=== PATIENT | male | born 1970 | race Caucasian/White ===

== ENCOUNTER 2016-02-11 09:00 | Outpatient (RCR) | payer BC | END 2016-03-01 | disposition home or self-care (01) | LOC: PT | DX: Z48.810 Encounter for surgical aftercare following surgery on the sense organs (principal); G95.0 Syringomyelia and syringobulbia | CPT/HCPCS: G0283-GP ==

== ENCOUNTER 2016-12-08 09:00 | Outpatient (RCR) | payer OTHER | END 2016-12-08 09:30 | disposition home or self-care (01) | LOC: PT 09:00 | DX: M71.9 Bursopathy, unspecified (principal) ==

== ENCOUNTER → 2017-09-18 | Outpatient (CLI) | payer BC | LOC: RAD 07:49 | DX: S22.42XA Multiple fractures of ribs, left side, initial encounter for closed fracture (principal); I51.7 Cardiomegaly ==

== ENCOUNTER → 2018-07-17 | Outpatient (CLI) | payer BC ==
[2018-07-17 18:03] LABS: BASO # 0.1 (0.02-0.10); EOS # 0.5 (0.04-0.40); HEMATOCRIT 40.1 % (42.0-52.0); LYMPH# 2.9 (1.50-4.00); MEAN CELL VOLUME 92 fl (78-100); MEAN CORPUSCULAR HEMOGLOBIN 30 pg (27-31); MEAN CORPUSCULAR HGB CONC 32 g/dL (33-37); MEAN PLATELET VOLUME 9.1 fl (7.4-10.4); MONO # 0.8 (0.20-0.80); NEU # 4.9 (1.40-6.50); PLATELET COUNT 363 K/mm3 (130-400); RED BLOOD COUNT 4.37 M/mm3 (4.20-5.60); RED CELL DISTRIBUTION WIDTH 13.9 % (11.5-14.5); WHITE BLOOD COUNT 9.1 K/mm3 (4.8-10.8)
[2018-07-17 18:29] LABS: ALBUMIN 3.9 g/dL (3.5-5.0); CALCIUM 9.1 mg/dL (8.3-10.5); POTASSIUM 3.9 mmol/L (3.5-5.1); TOTAL BILIRUBIN 0.3 mg/dL (0.2-1.2); TOTAL PROTEIN 6.8 g/dL (6.4-8.3)
[2018-07-17 19:16] LABS: EOS % 5.3 % (0.0-4.0)
[2018-07-17 19:17] LABS: ERYTHROCYTE SEDIMENTATION RATE 15 mm/hr (0-15)
== END ==
LOC: LAB 17:30
PROVIDERS: Internal Medicine
DX: Z00.00 Encounter for general adult medical examination without abnormal findings (principal); Z12.5 Encounter for screening for malignant neoplasm of prostate

== ENCOUNTER → 2019-04-08 | Outpatient (CLI) | payer BC | LOC: LAB 10:44 | DX: L82.1 Other seborrheic keratosis (principal) ==

== ENCOUNTER → 2019-11-25 | Outpatient (CLI) | payer BC | LOC: LAB 13:43 | DX: U07.1 COVID-19 (principal) ==

== ENCOUNTER → 2019-12-23 | Outpatient (CLI) | payer BC ==
[2019-12-23 16:50] LABS: BASO # 0.1 (0.02-0.10); EOS # 0.2 (0.04-0.40); EOS % 1.9 % (0.0-4.0); HEMATOCRIT 41.5 % (42.0-52.0); HEMOGLOBIN 13.9 g/dL (13.5-18.0); LYMPH# 3.2 (1.50-4.00); MEAN CELL VOLUME 89 fl (78-100); MEAN CORPUSCULAR HEMOGLOBIN 30 pg (27-31); MEAN CORPUSCULAR HGB CONC 34 g/dL (33-37); MEAN PLATELET VOLUME 8.9 fl (7.4-10.4); MONO # 0.9 (0.20-0.80); PLATELET COUNT 358 K/mm3 (130-400); RED BLOOD COUNT 4.64 M/mm3 (4.20-5.60); RED CELL DISTRIBUTION WIDTH 13.7 % (11.5-14.5); WHITE BLOOD COUNT 11.4 K/mm3 (4.8-10.8)
[2019-12-23 16:51] LABS: ALBUMIN 4.2 g/dL (3.5-5.0); POTASSIUM 4.1 mmol/L (3.5-5.1)
[2019-12-23 16:52] LABS: CALCIUM 9.3 mg/dL (8.3-10.5)
[2019-12-23 16:54] LABS: TOTAL PROTEIN 7.5 g/dL (6.4-8.3)
[2019-12-23 16:56] LABS: TOTAL BILIRUBIN 0.4 mg/dL (0.2-1.2)
[2019-12-23 17:40] LABS: ERYTHROCYTE SEDIMENTATION RATE 15 mm/hr (0-20)
== END ==
LOC: LAB 16:31
PROVIDERS: Internal Medicine
DX: Z00.00 Encounter for general adult medical examination without abnormal findings (principal); Z12.5 Encounter for screening for malignant neoplasm of prostate

== ENCOUNTER → 2020-01-01 | Outpatient (CLI) | payer BC | LOC: LAB 10:45 | DX: U07.1 COVID-19 (principal) ==

== ENCOUNTER → 2020-05-25 | Day surgery (SDC) | payer BC | LOC: MSO 08:09 | DX: Z12.11 Encounter for screening for malignant neoplasm of colon (principal); K57.30 Diverticulosis of large intestine without perforation or abscess without bleeding; Z90.49 Acquired absence of other specified parts of digestive tract; K21.9 Gastro-esophageal reflux disease without esophagitis | CPT/HCPCS: 00812; J2704; J3010; J7120 ==

== ENCOUNTER → 2020-12-22 | Outpatient (CLI) | payer BC ==
[2020-12-22 16:46] LABS: BASO # 0.08 K/mm3 (0.02-0.10); EOS # 0.27 K/mm3 (0.04-0.40); EOS % 2.7 % (0.0-4.0); HEMATOCRIT 42.8 % (42.0-52.0); HEMOGLOBIN 14.3 g/dL (13.5-18.0); LYMPH# 2.98 K/mm3 (1.50-4.00); MEAN CELL VOLUME 92 fl (78-100); MEAN CORPUSCULAR HEMOGLOBIN 31 pg (27-31); MEAN CORPUSCULAR HGB CONC 33 g/dL (33-37); MEAN PLATELET VOLUME 8.6 fl (7.4-10.4); NEU # 6.07 K/mm3 (1.40-6.50); PLATELET COUNT 416 K/mm3 (130-400); RED BLOOD COUNT 4.64 M/mm3 (4.20-5.60); RED CELL DISTRIBUTION WIDTH 13.3 % (11.5-14.5); WHITE BLOOD COUNT 10.1 K/mm3 (4.8-10.8)
[2020-12-22 16:54] LABS: POTASSIUM 4.1 mmol/L (3.5-5.1)
[2020-12-22 16:55] LABS: CALCIUM 9.5 mg/dL (8.3-10.5)
[2020-12-22 16:58] LABS: TOTAL BILIRUBIN 0.4 mg/dL (0.2-1.2)
== END ==
LOC: LAB 16:18
PROVIDERS: Internal Medicine
DX: Z00.00 Encounter for general adult medical examination without abnormal findings (principal); Z12.5 Encounter for screening for malignant neoplasm of prostate

== ENCOUNTER → 2021-12-09 | Outpatient (CLI) | payer BC ==
[2021-12-09 16:45] LABS: BASO # 0.03 K/mm3 (0.02-0.10); EOS # 0.35 K/mm3 (0.04-0.40); EOS % 4.2 % (0.0-4.0); HEMOGLOBIN 14.9 g/dL (13.5-18.0); LYMPH# 1.54 K/mm3 (1.50-4.00); MEAN CELL VOLUME 93 fl (78-100); MEAN CORPUSCULAR HEMOGLOBIN 31 pg (27-31); MEAN CORPUSCULAR HGB CONC 34 g/dL (33-37); MEAN PLATELET VOLUME 8.7 fl (7.4-10.4); MONO # 0.89 K/mm3 (0.20-0.80); NEU # 5.58 K/mm3 (1.40-6.50); PLATELET COUNT 313 K/mm3 (130-400); RED BLOOD COUNT 4.74 M/mm3 (4.20-5.60); RED CELL DISTRIBUTION WIDTH 13.1 % (11.5-14.5); WHITE BLOOD COUNT 8.4 K/mm3 (4.8-10.8)
[2021-12-09 16:49] LABS: ALBUMIN 4.2 g/dL (3.5-5.0)
[2021-12-09 16:50] LABS: CALCIUM 9.5 mg/dL (8.3-10.5)
[2021-12-09 16:51] LABS: TOTAL PROTEIN 7.2 g/dL (6.4-8.3)
[2021-12-09 16:53] LABS: TOTAL BILIRUBIN 0.5 mg/dL (0.2-1.2)
== END ==
LOC: LAB 16:28
PROVIDERS: Internal Medicine
DX: Z00.00 Encounter for general adult medical examination without abnormal findings (principal); Z12.5 Encounter for screening for malignant neoplasm of prostate; Z12.11 Encounter for screening for malignant neoplasm of colon; G95.0 Syringomyelia and syringobulbia; S14.109D Unspecified injury at unspecified level of cervical spinal cord, subsequent encounter; Z23 Encounter for immunization; L91.8 Other hypertrophic disorders of the skin

== ENCOUNTER → 2022-11-24 | Outpatient (CLI) | payer OTHER ==
[2022-11-24 14:00] LABS: ALBUMIN 4.1 g/dL (3.5-5.0); POTASSIUM 3.9 mmol/L (3.5-5.1)
[2022-11-24 14:01] LABS: CALCIUM 9.2 mg/dL (8.3-10.5)
[2022-11-24 14:02] LABS: TOTAL PROTEIN 7.2 g/dL (6.4-8.3)
[2022-11-24 14:04] LABS: TOTAL BILIRUBIN 0.5 mg/dL (0.2-1.2)
[2022-11-24 14:07] LABS: ERYTHROCYTE SEDIMENTATION RATE 19 mm/hr (0-20)
[2022-11-24 14:12] LABS: EOS # 1.59 K/mm3 (0.04-0.40); EOS % 12.1 % (0.0-4.0); HEMATOCRIT 41.3 % (42.0-52.0); HEMOGLOBIN 13.7 g/dL (13.5-18.0); LYMPH# 2.02 K/mm3 (1.50-4.00); MEAN CELL VOLUME 95 fl (78-100); MEAN CORPUSCULAR HEMOGLOBIN 32 pg (27-31); MEAN CORPUSCULAR HGB CONC 33 g/dL (33-37); MEAN PLATELET VOLUME 9.1 fl (7.4-10.4); MONO # 0.76 K/mm3 (0.20-0.80); NEU # 8.69 K/mm3 (1.40-6.50); PLATELET COUNT 366 K/mm3 (130-400); RED BLOOD COUNT 4.34 M/mm3 (4.20-5.60); RED CELL DISTRIBUTION WIDTH 13.1 % (11.5-14.5); WHITE BLOOD COUNT 13.2 K/mm3 (4.8-10.8)
== END ==
LOC: LAB 12:48
PROVIDERS: Nurse Practitioner Family
DX: J06.9 Acute upper respiratory infection, unspecified (principal); M25.50 Pain in unspecified joint; R09.81 Nasal congestion; Z20.822 Contact with and (suspected) exposure to COVID-19

== ENCOUNTER → 2022-12-13 | Outpatient (CLI) | payer OTHER ==
[2022-12-13 15:46] LABS: EOS # 1.62 K/mm3 (0.04-0.40); EOS % 17.2 % (0.0-4.0); HEMATOCRIT 37.5 % (42.0-52.0); HEMOGLOBIN 12.4 g/dL (13.5-18.0); LYMPH# 2.24 K/mm3 (1.50-4.00); MEAN CELL VOLUME 95 fl (78-100); MEAN CORPUSCULAR HEMOGLOBIN 32 pg (27-31); MEAN CORPUSCULAR HGB CONC 33 g/dL (33-37); MEAN PLATELET VOLUME 8.4 fl (7.4-10.4); MONO # 0.69 K/mm3 (0.20-0.80); NEU # 4.77 K/mm3 (1.40-6.50); PLATELET COUNT 383 K/mm3 (130-400); RED BLOOD COUNT 3.93 M/mm3 (4.20-5.60); WHITE BLOOD COUNT 9.4 K/mm3 (4.8-10.8)
== END ==
LOC: LAB 15:23
PROVIDERS: Internal Medicine
DX: Z00.00 Encounter for general adult medical examination without abnormal findings (principal); Z12.11 Encounter for screening for malignant neoplasm of colon; Z12.5 Encounter for screening for malignant neoplasm of prostate; Z23 Encounter for immunization; S14.109D Unspecified injury at unspecified level of cervical spinal cord, subsequent encounter; G95.0 Syringomyelia and syringobulbia; L91.8 Other hypertrophic disorders of the skin; E55.9 Vitamin D deficiency, unspecified; K90.9 Intestinal malabsorption, unspecified; J30.2 Other seasonal allergic rhinitis

== ENCOUNTER → 2023-02-10 | Outpatient (CLI) | payer OTHER | LOC: LAB 08:31 | DX: R76.0 Raised antibody titer (principal) ==

== ENCOUNTER → 2023-05-02 | Outpatient (CLI) | payer OTHER | LOC: LAB 15:53 | DX: L08.9 Local infection of the skin and subcutaneous tissue, unspecified (principal) ==

== ENCOUNTER → 2023-06-19 | Outpatient (REF) | payer OTHER | LOC: LAB 08:36 | DX: L08.9 Local infection of the skin and subcutaneous tissue, unspecified (principal) ==

== ENCOUNTER → 2023-08-01 | Outpatient (CLI) | payer OTHER | LOC: RAD 07:38 | DX: M17.11 Unilateral primary osteoarthritis, right knee (principal) ==

== ENCOUNTER → 2023-08-10 | Outpatient (CLI) | payer OTHER | LOC: RAD 07:17 | DX: M17.11 Unilateral primary osteoarthritis, right knee (principal) ==

== ENCOUNTER → 2023-12-15 | Outpatient (CLI) | payer OTHER ==
[2023-12-15 10:10] LABS: BASO # 0.03 K/mm3 (0.02-0.10); EOS # 0.24 K/mm3 (0.04-0.40); EOS % 2.3 % (0.0-4.0); HEMATOCRIT 41.3 % (42.0-52.0); HEMOGLOBIN 13.8 g/dL (13.5-18.0); LYMPH# 2.15 K/mm3 (1.50-4.00); MEAN CELL VOLUME 93 fl (78-100); MEAN CORPUSCULAR HEMOGLOBIN 31 pg (27-31); MEAN CORPUSCULAR HGB CONC 33 g/dL (33-37); MEAN PLATELET VOLUME 8.4 fl (7.4-10.4); MONO # 0.75 K/mm3 (0.20-0.80); NEU # 7.31 K/mm3 (1.40-6.50); PLATELET COUNT 448 K/mm3 (130-400); RED BLOOD COUNT 4.45 M/mm3 (4.20-5.60); WHITE BLOOD COUNT 10.5 K/mm3 (4.8-10.8)
[2023-12-15 10:13] LABS: ALBUMIN 4.5 g/dL (3.5-5.0)
[2023-12-15 10:14] LABS: CALCIUM 9.6 mg/dL (8.3-10.5); PROTHROMBIN TIME 10.5 SECONDS (9.0-12.0)
[2023-12-15 10:17] LABS: TOTAL BILIRUBIN 0.4 mg/dL (0.2-1.2)
[2023-12-15 10:22] LABS: MAGNESIUM 2.18 mg/dL (1.60-2.60)
[2023-12-15 10:38] LABS: URINE APPEARANCE CLEAR (CLEAR); URINE BILIRUBIN NEGATIVE (NEGATIVE); URINE BLOOD NEGATIVE (NEGATIVE); URINE COLOR YELLOW (YELLOW); URINE GLUCOSE NEGATIVE (NEGATIVE); URINE KETONE NEGATIVE (NEGATIVE); URINE LEUKOCYTE ESTERASE NEGATIVE (NEGATIVE); URINE NITRATE NEGATIVE (NEGATIVE); URINE PROTEIN(semi-quant) NEGATIVE (NEGATIVE); URINE WBC 0-1 /hpf (0-3)
[2023-12-15 10:40] VITALS: BP 124/63
== END ==
LOC: LAB 09:41
PROVIDERS: Internal Medicine
DX: Z01.818 Encounter for other preprocedural examination (principal); Z12.5 Encounter for screening for malignant neoplasm of prostate; K90.9 Intestinal malabsorption, unspecified; E78.2 Mixed hyperlipidemia; H04.321 Acute dacryocystitis of right lacrimal passage

== ENCOUNTER 2024-01-08 12:47 | Outpatient (RCR) | payer OTHER | END 2024-01-13 | LOC: PT | DX: M17.11 Unilateral primary osteoarthritis, right knee (principal) ==

== ENCOUNTER 2024-01-15 12:45 | Outpatient (RCR) | payer OTHER | END 2024-02-13 | LOC: PT | DX: M17.11 Unilateral primary osteoarthritis, right knee (principal); Z96.651 Presence of right artificial knee joint ==